=== PATIENT | male | born 1955 | race American Indian/Alaskan Native ===

== ENCOUNTER 2019-03-18 19:13 | Emergency (ER) | payer OTHER ==
[2019-03-18 19:23] VITALS: BP 122/82
--- NOTE | 2019-03-18 19:39 | Event Note ---
ED Screening Note Date of service: 03/18/19 Time: 19:34 ED Screening Note: This is a 63 y.o. M. that presents to the ER with urinary retention. Symptoms started 3-4 days ago and worsening. Patient reports low output for a few days. States today he was unable to urinate. PMH of TURP Patient is visiting family from [place]. This initial assessment/diagnostic orders/clinical plan/treatment(s) is/are subject to change based on patients health status, clinical progression and re-assessment by fellow clinical providers in the ED. Further treatment and workup at subsequent clinical providers discretion. Patient/guardian urged not to elope from the ED as their condition may be serious if not clinically assessed and managed. Initial orders include: Labs Bladder scan
[2019-03-18 20:29] LABS: Basophils % (Auto) 1.3 % (0.0-1.8); Eosinophils # (Auto) 0.1 K/mm3 (0.0-0.4); Hematocrit 44.3 % (35.5-45.6); Hemoglobin 14.9 gm/dl (11.8-15.2); Lymphocytes # (Auto) 1.6 K/mm3 (1.2-5.4); Mean Corpuscular HGB Conc 34 % (32-34); Mean Corpuscular Volume 92 fl (84-94); Monocytes # (Auto) 0.5 K/mm3 (0.0-0.8); Monocytes % (Auto) 12.6 % (0.0-7.3); Platelet Count 203 K/mm3 (140-440); Red Blood Count 4.84 M/mm3 (3.65-5.03); Red Cell Distribution Width 13.6 % (13.2-15.2)
[2019-03-18 20:51] LABS: Alanine Aminotransferase 38 units/L (7-56); Albumin 4.1 g/dL (3.9-5); BUN/Creatinine Ratio 12; Blood Urea Nitrogen 12 mg/dL (9-20); Calcium 9.4 mg/dL (8.4-10.2); Hemolysis Index 23
[2019-03-18 20:57] LABS: Bilirubin,Urine NEG (Negative); Blood,Urine NEG (Negative); Color,Urine Yellow (Yellow); Mucus,Urine FEW /HPF; Protein,Urine <15 mg/dL mg/dL (Negative); Urobilinogen,Urine < 2.0 mg/dL (<2.0)
[2019-03-18] MEDS ORDERED: LIDOCAINE-MPF (1%) 10 MG/1 ML VIAL 5 ML INFILTRATI ONE (22:02)
--- NOTE | 2019-03-18 23:45 | Emergency Department Report ---
ED Male HPI - General Chief complaint: Urogenital-Male Stated complaint: CANT URINATE Time Seen by Provider: 03/18/19 19:33 Source: patient Mode of arrival: Ambulatory Limitations: No Limitations - History of Present Illness Initial comments: Mr Cooper is s 63 y/o aam with hx of BPH , s/p TURP 3 yrs ago, who presents for dysuria x 3 days. Pt is on holiday , drove from [facility] to visit family. pt states symptoms include frequency and hesitancy. There is no hemturia, no back pain no fever or chills, no n/v. pt is tolerating po intake . pt is voiding , There are no symptoms of bladder/urethral obstruction , pyelonephritis, or renal stones. MD Complaint: dysuria Onset/Timin -: days(s) Location: penis Radiation: none Severity: moderate Severity scale (0 -10): 4 Quality: other (spasm frequency ) Consistency: intermittent Improves with: none Worsens with: urination dysuria. denies: discharge, swelling, mass, rash, blood in urine, fever, nausea/vomiting, incontinence - Related Data Sexually active: Yes Previous Rx's Medication Instructions Recorded Last Taken Type Ciprofloxacin HCl [Ciprofloxacin 500 mg PO BID 10 Days #20 tab 03/18/19 Unknown Rx TAB] Phenazopyridine [Pyridium] 200 mg PO BID 3 Days #6 tab 03/18/19 Unknown Rx Allergies Allergy/AdvReac Type Severity Reaction Status Date / Time No Known Allergies Allergy Unverified 03/18/19 22:08 ED Review of Systems ROS: Stated complaint: CANT URINATE Other details as noted in HPI Constitutional: denies: chills, fever Eyes: denies: eye pain, eye discharge, vision change ENT: denies: ear pain, throat pain Respiratory: denies: cough, shortness of breath, wheezing Cardiovascular: denies: chest pain, palpitations Endocrine: no symptoms reported Gastrointestinal: denies: abdominal pain, nausea, vomiting, diarrhea Genitourinary: dysuria, frequency. denies: urgency, hematuria, discharge, testicular pain, testicular mass Musculoskeletal: denies: back pain, joint swelling, arthralgia Skin: denies: rash, lesions Neurological: denies: headache, weakness, paresthesias Psychiatric: denies: anxiety, depression Hematological/Lymphatic: denies: easy bleeding, easy bruising ED Past Medical Hx - Past Medical History Previous Medical History?: No - Surgical History Past Surgical History?: Yes Additional Surgical History: TURK - Social History Smoking Status: Current Every Day Smoker Substance Use Type: None - Medications Home Medications: Home Medications Medication Instructions Recorded Confirmed Last Taken Type Ciprofloxacin HCl [Ciprofloxacin 500 mg PO BID 10 Days #20 tab 03/18/19 Unknown Rx TAB] Phenazopyridine [Pyridium] 200 mg PO BID 3 Days #6 tab 03/18/19 Unknown Rx ED Physical Exam - General Limitations: No Limitations General appearance: alert, in no apparent distress - Head Head exam: Present: atraumatic, normocephalic - Eye Eye exam: Present: normal appearance - ENT ENT exam: Present: mucous membranes moist - Neck Neck exam: Present: normal inspection, full ROM. Absent: tenderness - Respiratory Respiratory exam: Present: normal lung sounds bilaterally. Absent: respiratory distress, wheezes, stridor - Cardiovascular Cardiovascular Exam: Present: regular rate, normal rhythm, normal heart sounds. Absent: systolic murmur, diastolic murmur, rubs, gallop - GI/Abdominal GI/Abdominal exam: Present: soft, normal bowel sounds. Absent: distended, tenderness, guarding, rebound, rigid, bruit, hernia - Rectal Rectal exam: Present: deferred - exam: Present: other (deferred ) - Extremities Exam Extremities exam: Present: normal inspection, full ROM. Absent: tenderness, pedal edema - Back Exam Back exam: Present: normal inspection, full ROM. Absent: tenderness, CVA tenderness (R), CVA tenderness (L), muscle spasm, vertebral tenderness, rash noted - Neurological Exam Neurological exam: Present: alert, oriented X3, CN II-XII intact, normal gait - Psychiatric Psychiatric exam: Present: normal affect, normal mood - Skin Skin exam: Present: warm, dry, intact, normal color. Absent: rash ED Course Vital Signs 03/18/19 03/18/19 19:17 21:14 Temperature 97.8 F Pulse Rate 79 Respiratory 18 16 Rate Blood Pressure 122/82 O2 Sat by Pulse 98 Oximetry ED Medical Decision Making - Lab Data Result diagrams: 03/18/19 19:53 03/18/19 19:53 Labs 03/18/19 03/18/19 03/18/19 19:53 19:53 Unknown WBC 3.8 L RBC 4.84 Hgb 14.9 Hct 44.3 MCV 92 MCH 31 MCHC 34 RDW 13.6 Plt Count 203 Lymph % (Auto) 43.0 H Ross % (Auto) 12.6 H Eos % (Auto) 3.0 Baso % (Auto) 1.3 Lymph # 1.6 Ross # 0.5 Eos # 0.1 Baso # 0.0 Seg Neutrophils % 40.1 Seg Neutrophils # 1.5 L Sodium 135 L Potassium 4.3 Chloride 101.8 Carbon Dioxide 21 L Anion Gap 17 BUN 12 Creatinine 1.0 Estimated GFR > 60 BUN/Creatinine Ratio 12 Glucose 89 Calcium 9.4 Total Bilirubin 0.60 AST 28 ALT 38 Alkaline Phosphatase 67 Total Protein 7.8 Albumin 4.1 Albumin/Globulin Ratio 1.1 Urine Color Yellow Urine Turbidity Clear Urine pH 5.0 Ur Specific [place] 1.013 Urine Protein <15 mg/dl Urine Glucose (UA) Neg Urine Ketones Tr Urine Blood Neg Urine Nitrite Neg Urine Bilirubin Neg Urine Urobilinogen < 2.0 Ur Leukocyte Esterase Mod Urine WBC (Auto) 15.0 H Urine RBC (Auto) 3.0 U Epithel Cells (Auto) 1.0 Urine Mucus Few - Medical Decision Making ua: pos for luek, wbc , yuri, plan: pt given rocephin IM in ed, will dc to home with rx for cipro , pyridium, follow up with urology in 2-3 days return to ed if symptoms worsen, see your urologist upon arrival to home. pt verbalized agreement and understanding of same, pt dc'd to home in stable condition. pt is currently voiding without difficulty will return to ed if unable to void. Critical care attestation.: If time is entered above; I have spent that time in minutes in the direct care of this critically ill patient, excluding procedure time. ED Disposition Clinical Impression: Dysuria UTI (urinary tract infection) Qualifiers: Urinary tract infection type: acute cystitis Hematuria presence: without hematuria Qualified Code(s): N30.00 - Acute cystitis without hematuria Disposition: DC-01 TO HOME OR SELFCARE Is pt being admited?: No Does the pt Need Aspirin: No Condition: Stable Instructions: Dysuria (ED), Benign Prostatic Hypertrophy (ED) Additional Instructions: follow up with your Urologist up return to home, return ER immediately if unable to void. Prescriptions: Ciprofloxacin HCl [Ciprofloxacin TAB] 500 mg PO BID 10 Days #20 tab Phenazopyridine [Pyridium] 200 mg PO BID 3 Days #6 tab Referrals: PRIMARY CARE, [Primary Care Provider] - 3-5 Days DAR FELTON MD [Staff Physician] - 3-5 Days
== END 2019-03-19 00:06 | disposition home or self-care (01) ==
LOC: ED 19:13
DX: N39.0 Urinary tract infection, site not specified (principal); F17.200 Nicotine dependence, unspecified, uncomplicated; Z98.890 Other specified postprocedural states; Z79.899 Other long term (current) drug therapy
CPT/HCPCS: 36415; 80053; 81001; 85025; 87086; 96372; 99283; J0696